=== PATIENT | male | born 1950 | race Caucasian/White ===

== ENCOUNTER 2017-06-05 14:54 | Emergency (ER) | payer MEDICARE, OTHER ==
[2017-06-05 15:07] VITALS: BP 151/74
--- NOTE | 2017-06-05 15:30 | UC ---
Bite Injury/Animal HPI - HPI Summary HPI Summary: 66 YEAR OLD MALE PRESENTS WITH A TICK BITE ON HIS BACK AND WANTS TO BE TESTED FOR LYME. - History of Current Complaint Chief Complaint: UCSkin Stated Complaint: TICK BITE Time Seen by Provider: 06/05/17 15:30 Hx Obtained From: Patient Severity Currently: Moderate Severity Initially: Moderate Pain Scale Used: 0-10 Numeric - 5 Onset/Duration: Sudden Onset Type of Bite: Animal - TICK - Allergies/Home Medications Allergies/Adverse Reactions: Allergies Allergy/AdvReac Type Severity Reaction Status Date / Time Penicillins Allergy A CHILD Verified 06/05/17 15:07 - UNSURE OF REACTION Home Medications: Home Medications Vitamin B Complex CAP* [B Complex CAP*] 1 cap PO DAILY 06/05/17 [History Confirmed 06/05/17] PMH/Surg Hx/FS Hx/Imm Hx Previously Healthy: Yes - Surgical History Surgical History: Yes Surgery Procedure, Year, and Place: CSP - C3-C6 LAMINECTOMY -01/10. [facility] AGE 4 AND THEN ABOUT 20 YRS AGO ALSO. DEVIATED SEPTUM - Social History Alcohol Use: Daily Alcohol Amount: 2 beers/day Substance Use Type: None Smoking Status (MU): Never Smoked Tobacco Review of Systems Constitutional: Negative Skin: Other - TICK BITE ON LEFT UPPER BACK Eyes: Negative ENT: Negative Respiratory: Negative Cardiovascular: Negative Gastrointestinal: Negative Genitourinary: Negative Motor: Negative Neurovascular: Negative Musculoskeletal: Negative Neurological: Negative Psychological: Negative All Other Systems Reviewed And Are Negative: Yes Physical Exam Triage Information Reviewed: Yes Vital Signs: Initial Vital Signs Temp 36.6 C 06/05/17 14:58 Pulse 67 06/05/17 14:58 Resp 16 06/05/17 14:58 BP 151/74 06/05/17 14:58 Pulse Ox 98 06/05/17 14:58 Vital Signs Reviewed: Yes Eye Exam: Normal ENT Exam: Normal Dental Exam: Normal Neck exam: Normal Neck: Positive: 1 Respiratory Exam: Normal Cardiovascular Exam: Normal Abdominal Exam: Normal Musculoskeletal Exam: Normal Neurological Exam: Normal Psychological Exam: Normal Skin: Positive: Other - TICK BITE LEFT UPPER BACK Bite Injury Course/Dx - Course Course Of Treatment: PATIENT OPTED FOR 200 MG DOXYCYCLINE DOSE UNTIL RESULTS COME BACK - Differential Dx/Diagnosis Provider Diagnoses: INSECT BITE LEFT UPPER BACK Discharge - Discharge Plan Condition: Stable Disposition: HOME Patient Education Materials: Lyme Disease (ED), Tick Bite (ED) Referrals: Trino Cruz MD [Primary Care Provider] -
[2017-06-05] MEDS ORDERED: DOXYcycline CAP(*) 100 MG PO ONE (15:37)
[2017-06-05 19:30] LABS: BUN/Creatinine Ratio 15.7 (8-20); Calcium 9.1 mg/dL (8.6-10.3); EGFR African American 81.6 (>60); EGFR Non-African American 63.4 (>60); Globulin 2.4 g/dL (2-4); Potassium 3.8 mmol/L (3.5-5.0); Total Bilirubin 0.6 mg/dL (0.2-1.0); Total Protein 6.4 g/dL (6.4-8.9)
--- NOTE | 2017-06-08 07:18 | UC ---
Progress - Progress Note Progress Note: lyme (+).doxycycline called in. f/u PCP.
[2017-06-09 14:02] LABS: Lyme Disease IgG Ab WB Negative (Negative)
== END 2017-06-05 16:00 | disposition home or self-care (01) ==
LOC: UCEAST 14:54
DX: S20.462A Insect bite (nonvenomous) of left back wall of thorax, initial encounter (principal); W57.XXXA Bitten or stung by nonvenomous insect and other nonvenomous arthropods, initial encounter; Y92.9 Unspecified place or not applicable
CPT/HCPCS: 36415; 80053; 86617; 86618; 99212; A9270-GY; G0463

== ENCOUNTER 2018-04-15 08:58 | Emergency (ER) | payer MEDICARE, OTHER ==
[2018-04-15 09:14] VITALS: BP 137/85
--- NOTE | 2018-04-15 09:52 | UC ---
Knee Pain HPI - HPI Summary HPI Summary: FELL ON HIS KNEE OVER THE WINTER AND SINCE THEN HAS HAD INTERMITTENT PAIN AND SWELLING. USUALLY RESOLVES WITH RICE AND IBUPROFEN BUT CURRENTLY IS NOT WORKING. PAIN HAS BEEN WORSENING OVER THE PAST 2 WEEKS. PATIENT IS NOW LIMPING. CALLED HIS PCP WHO WAS TO ORDER AN X-RAY FOR HIM. PATIENT IS STILL WAITING ON THIS ORDER SO DECIDED TO COME IN HERE TODAY. - History of Current Complaint Chief Complaint: UCLowerExtremity Stated Complaint: KNEE PAIN Time Seen by Provider: 04/15/18 09:24 Hx Obtained From: Patient Onset/Duration: Gradual Onset, Lasting Weeks, Still Present Severity Initially: Moderate Severity Currently: Moderate Pain Intensity: 3 Pain Scale Used: 0-10 Numeric Character: Aching Aggravating Factor(s): Movement, Weight Bearing Alleviating Factor(s): Nothing Associated Signs And Symptoms: Positive: Swelling Able to Bear Weight: Yes - WITH PAIN - Allergies/Home Medications Allergies/Adverse Reactions: Allergies Allergy/AdvReac Type Severity Reaction Status Date / Time Penicillins Allergy See Comment Verified 04/15/18 09:14 Home Medications: Home Medications Inulin/Chromium Picolinate [Fiber Gummies] 1 each PO TID 04/15/18 [History Confirmed 04/15/18] PMH/Surg Hx/FS Hx/Imm Hx - Additional Past Medical History Additional PMH: ALLERGIES Endocrine History: Hypothyroidism, Dyslipidemia GI/ History: Gastroesophageal Reflux - Surgical History Surgical History: Yes Surgery Procedure, Year, and Place: CSP - C3-C6 LAMINECTOMY -01/10. [facility]IA AGE 4 AND THEN ABOUT 20 YRS AGO ALSO. DEVIATED SEPTUM - Family History Known Family History: Positive: Hypertension Negative: Blood Disorder - Social History Alcohol Use: Daily Alcohol Amount: 2 beers/day Substance Use Type: None Smoking Status (MU): Never Smoked Tobacco Review of Systems Constitutional: Negative Skin: Negative Respiratory: Negative Cardiovascular: Negative Gastrointestinal: Negative Musculoskeletal: Arthralgia, Decreased ROM, Edema All Other Systems Reviewed And Are Negative: Yes Physical Exam Triage Information Reviewed: Yes Appearance: Well-Appearing, No Pain Distress, Well-Nourished Vital Signs: Initial Vital Signs Temp 98.1 F 04/15/18 09:09 Pulse 83 04/15/18 09:09 Resp 18 04/15/18 09:09 BP 137/85 04/15/18 09:09 Pulse Ox 100 04/15/18 09:09 Vital Signs Reviewed: Yes Eyes: Positive: Conjunctiva Clear ENT: Positive: Hearing grossly normal Neck: Positive: Supple Respiratory: Positive: No respiratory distress, No accessory muscle use Cardiovascular: Positive: Pulses Normal Abdomen Description: Positive: Soft Musculoskeletal: Positive: ROM Limited @ - LEFT KNEE, Edema @ - LEFT KNEE, Other : - LEFT KNEE: DIFFUSELY TENDER AND SWOLLEN. NO BONY POINT TENDERNESS. MCL AND LCL INTACT TO STRESS TESTING. NEG LACHMANS. NEG DRAWERS SIGNS. EQUIVOCAL MCMURRAYS. NEG PATELLAR APPREHENSION TEST. DECREASED ROM (FLEXION). Neurological: Positive: Alert Psychological: Positive: Age Appropriate Behavior Skin: Negative: rashes Diagnostics - Radiology LEFT KNEE XRAY Xray Interpretation: Positive (See Comments) - 1. MILD OSTEOARTHRITIS. 2. MILD CHONDROCALCINOSIS. 3. SMALL JOINT EFFUSION. Radiology Interpretation Completed By: Radiologist Knee Pain Course/Dx - Differential Dx/Diagnosis Provider Diagnoses: LEFT KNEE INJURY Discharge - Sign-Out/Discharge Documenting (check all that apply): Patient Departure - Discharge Plan Condition: Stable Disposition: HOME Patient Education Materials: Osteoarthritis (ED), Knee Pain (ED) Referrals: Trino Cruz MD [Primary Care Provider] - If Needed Pilar Soler MD [Medical Doctor] - 1 Week Additional Instructions: XRAY TODAY SHOWS: 1. MILD OSTEOARTHRITIS. 2. MILD CHONDROCALCINOSIS. 3. SMALL JOINT EFFUSION. FOLLOW-UP WITH ORTHO WITHIN A WEEK FOR FURTHER EVALUATION. KNEE IMMOBILIZER FOR STABILITY AND SUPPORT. BE SURE TO GO THROUGH SLOW RANGE OF MOTION MOVEMENTS DAILY YOU ARE ABLE TO PREVENT STIFFENING UP AND MAKING THE DISCOMFORT WORSE. IBUPROFEN MAX DOSE: 600MG (3 TABS) EVERY 6 HRS OR 800MG (4 TABS) EVERY 8 HRS OR NAPROXEN MAX DOSE: 440MG (2 TABS) EVERY 12 HRS TYLENOL MAX DOSE: 1000MG (2 EXTRA STRENGTH TABS) EVERY 8 HRS OR 650MG (2 REGULAR TABS) EVERY 6 HRS - Billing Disposition and Condition Condition: STABLE Disposition: Home
--- NOTE | 2018-04-15 10:18 | RAD ---
HISTORY: INCREASED PAIN AND SWELLING SINCE FALL LAST WINTER COMPARISONS: None VIEWS: 4, Frontal, lateral, axial, and oblique views of the left knee FINDINGS: BONE DENSITY: Normal. BONES: There is no displaced fracture. JOINTS: There is mild tricompartmental osteoarthritis. There is chondrocalcinosis along the medial compartment.. There is a small suprapatellar joint effusion without lipohemarthrosis ALIGNMENT: There is no dislocation. SOFT TISSUES: Unremarkable. OTHER FINDINGS: None. IMPRESSION: 1. MILD OSTEOARTHRITIS. 2. MILD CHONDROCALCINOSIS. 3. SMALL JOINT EFFUSION. 4. NO ACUTE OSSEOUS INJURY. IF SYMPTOMS PERSIST, RECOMMEND REPEAT IMAGING
== END 2018-04-15 10:59 | disposition home or self-care (01) ==
LOC: UCEAST 08:58
DX: S89.92XA Unspecified injury of left lower leg, initial encounter (principal); X58.XXXA Exposure to other specified factors, initial encounter; Y93.9 Activity, unspecified; Y92.9 Unspecified place or not applicable; M17.12 Unilateral primary osteoarthritis, left knee; M11.262 Other chondrocalcinosis, left knee; Z88.0 Allergy status to penicillin
CPT/HCPCS: 99213; G0463

== ENCOUNTER 2018-05-28 15:00 | Inpatient (IN) | payer MEDICARE, OTHER ==
--- NOTE | 2019-03-29 18:30 | HP ---
PREOPERATIVE HISTORY AND PHYSICAL: DATE OF ADMISSION/SURGERY: 04/08/19 DATE OF OFFICE VISIT: 03/29/19 ATTENDING PHYSICIAN: Dr. Berta Friend.* (DICTATED BY BRITTANY THOMASON) PROCEDURE: Scheduled right total hip arthroplasty. CHIEF COMPLAINT: Right hip pain. HISTORY OF PRESENT ILLNESS: Mr. Johnston is a 68-year-old male with ongoing right hip pain. He did initially get relief with steroid injection. He has increased pain with activities and exercise, decreased with rest and steroid injections. He has regressed overall and now has elected to proceed with right total hip arthroplasty, which is scheduled on 04/08/19. PAST MEDICAL HISTORY: Significant for cervical disk degeneration, osteoarthritis, cervical spondylosis, idiopathic peripheral autonomic neuropathy , spinal stenosis, hypothyroidism, GERD, remote history of Lyme disease. PAST SURGICAL HISTORY: Cervical laminectomy, hernia repair, deviated septum surgery, throat abscess excision. CURRENT MEDICATIONS: 1. Levothyroxine 75 mcg daily. 2. Ranitidine 300 mg 1 daily. 3. Atorvastatin 10 mg p.o. daily. 4. Gabapentin 100 mg 3 tablets at bedtime. 5. Sudafed 120 mg as needed for seasonal allergies. 6. Acetaminophen 500 mg as needed for joint pain. 7. Supplements, fish oil 300 mg daily. 8. Vitamin B complex daily. 9. Vitamin D3 1000 International Units daily. 10. Glucosamine and chondroitin sulfate 1 to 2 tablets daily. 11. Psyllium fiber capsules daily. 12. AREDS eye multivitamins daily. ALLERGIES: PENICILLIN. FAMILY HISTORY: Father with prostate cancer. Mother with a history of colon cancer. SOCIAL HISTORY: The patient drinks roughly 1 glass of wine with dinner daily. Denies use of tobacco products or illicit drugs. He lives alone. 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 REVIEW OF SYSTEMS: Positive for right hip pain and left knee pain. Denies recent fever, chills, chest pain, shortness of breath. Denies gastrointestinal or genitourinary symptoms. He does have paresthesias in the fingertips and in his feet bilaterally. There is intermittent patchy paresthesias from the knee to the ankle. PHYSICAL EXAMINATION GENERAL: He is alert and oriented x3, in no acute distress, appropriate affect and mood. VITAL SIGNS: Height 71 inches, weight 192. Pulse 56, BP 172/110. HEENT: PERRLA. EOMI. NECK: Supple. LUNGS: Clear to auscultation, without wheeze. HEART: Regular rate and rhythm, without murmur. ABDOMEN: Nontender, nondistended. Normoactive bowel sounds x4 quadrants. EXTREMITIES: Right lower extremity: Flexion to 90 degrees with mild pain. Internal and external rotation limited secondary to right groin pain. He has a 2+ pedal pulse. Mild paresthesias in the toes on the right. Calf is soft and nontender. IMPRESSION: Advanced osteoarthritis of the right hip. PLAN: The patient has elected to proceed with right total hip arthroplasty, which is scheduled with Dr. Friend on 04/08/19 at [facility] [place]. The patient's risks and benefits were fully reviewed today by Dr. Friend at his preoperative office visit and he elected to proceed with surgery. BRITTANY THOMASON [id number]/[facility] #: [id number] ALLIE
[2019-04-08] MEDS ORDERED: Tranexamic Acid 1,000 MG in NS 0.9% 50 ML* (outpatient use) IV SCH ×2
[2019-04-08] MEDS ORDERED: Famotidine IV* 10 MG/ML 2 ML (20 mg) IV ONE (06:00)
[2019-04-08] MEDS ORDERED: Lactated Ringers 1000 ML Bag* 1,000 ML IV SCH (06:00)
[2019-04-08] MEDS ORDERED: Gabapentin CAP(*) 300 MG PO ONE (06:00)
--- OUTSIDE RECORDS SUMMARY | 2019-04-08 13:34 | XMS REPORT | Continuity of Care Document ---
:1950 External Reference #:[id number] Author Name Albertina Coleecca Care Team Providers Name Role Phone Trino Cruz MD Primary Care Physician Unavailable Payers Date Identification Numbers Payment Provider Subscriber Policy Number: [id number] Medicare Silvestre Chapman PayID: [id number] [address] [place] [address] Expires: 2018 Policy Number: [id number] Medicare Silvestre Chapman PayID: [id number] [address] [place] [address] Effective: 2011 Policy Number: [id number] BS Facets Silvestre Chapman Expires: 2016 PayID: [id number] [address] [address] [place] [address] Expires: 2017 Group Number: [id number] [employer] Silvestre Chapman Group Name: [facility] [place] [address],[address] PayID: [id number] [place] [address] Effective: 2017 Policy Number: [id number] [employer] Silvestre Chapman PayID: [id number] [address] [place] [address] Problems Active Problems Provider Date Spinal stenosis in cervical region Makr Hcikman M.D. Onset: 09/17/2013 Postsurgical Status Other Mark Hickman M.D. Onset: 09/17/2013 Idiopathic peripheral autonomic neuropathy aDniel Rae M.D. Onset: 2015 Cervical spondylosis with myelopathy Daniel Rae M.D. Onset: 09/13/2016 Localized, primary osteoarthritis Berta Friend M.D. Onset: 04/17/2018 Intervertebral disc disorder of cervical Akash Diaz M.D. Onset: 2017 region with myelopathy Low back pain Akash Diaz M.D. Onset: 05/28/2018 Polyneuropathy Akash Diaz M.D. Onset: 05/28/2018 Skin sensation disturbance Akash Diaz M.D. Onset: 08/18/2018 Localized, primary osteoarthritis of the Berta Friend M.D. 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 need thigh high Levothyroxine Sodium 1 by mouth once Unknown 75mcg daily Tablets Atorvastatin Calcium One by mouth Unknown 10mg once daily Tablets Gabapentin 1 by mouth as Trino Cruz, 100mg Capsules needed Ranitidine HCL 1 by mouth once Trino Cruz, 300mg Tablets daily Fiber Choice Unknown 1.5gm Chewtabs Pseudoephedrine HCL ER As needed Unknown 120mg Tablets ER 12HR Glucosamine Chondroitin Once daily Unknown Capsules History Medications Vitamin B Complex-C once daily Unknown - Capsules 02/04/2019 Fish Oil As directed Unknown - Capsules 02/04/2019 Areds 2 Once daily Unknown - Areds 2 Capsules 02/04/2019 Acetaminophen Extra 2 tabs by mouth Unknown - Strength every 8 hours as 02/04/2019 500mg Tablets needed for pain or fever Loratadine 1 by mouth every day 30tabs Unknown - 10mg Tablets 02/04/2019 Multivitamin Adult 1 by mouth every day Unknown - Tablets 05/27/2018 Vitamin D2 1 by mouth every day Unknown - 2000Unit Tablets 02/04/2019 Naproxen Sodium As needed Unknown - 220mg Capsules 02/04/2019 Pantoprazole Sodium Unknown - 40mg 05/26/2018 Tablets Synthroid 1 po qd Unknown - Tablets 08/19/2016 Pantoprazole Sodium 1 po qd 30units Unknown - Solution 08/19/2016 Rec Medications Administered in Office Medication SIG Qnty Indications Ordering Provider Date No Injection Berta Friend M.D. 02/05/2019 Injection Depomedrol 40MG Berta Friend M.D. 02/05/2019 Injection Triamcinolone (Kenalog) Berta Friend M.D. 04/17/2018 Injection Vital Signs Date Vital Result Comment 03/29/2019 8:58am Height 71 inches 5'11" Weight 192.00 lb Heart Rate 56 /min BP Systolic 172 mmHg BP Diastolic 110 mmHg Respiratory Rate 16 /min Body Temperature 96.8 F Pain Level 2 BMI (Body Mass Index) 26.8 kg/m2 02/17/2019 8:20am Height 71 inches 5'11" Weight 190.00 lb Heart Rate 66 /min Body Temperature 96.9 F O2 % BldC Oximetry 98 % BMI (Body Mass Index) 26.5 kg/m2 02/05/2019 9:49am Height 71 inches 5'11" Weight 189.00 lb Heart Rate 72 /min BP Systolic 144 mmHg BP Diastolic 90 mmHg Respiratory Rate 18 /min Body Temperature 97.2 F Pain Level 6 BMI (Body Mass Index) 26.4 kg/m2 08/18/2018 8:16am Height 71 inches 5'11" Weight 189.00 lb Heart Rate 76 /min BP Systolic 138 mmHg BP Diastolic 98 mmHg BMI (Body Mass Index) 26.4 kg/m2 05/28/2018 11:17am Height 71 inches 5'11" Weight 191.50 lb Heart Rate 76 /min BP Systolic 136 mmHg BP Diastolic 100 mmHg Respiratory Rate 16 /min BMI (Body Mass Index) 26.7 kg/m2 04/24/2018 10:08am Height 71 inches 5'11" Heart Rate 64 /min BP Systolic Sitting 126 mmHg BP Diastolic Sitting 78 mmHg Body Temperature 97.8 F Pain Level 2 04/17/2018 3:39pm Height 71 inches 5'11" Weight 200.00 lb Heart Rate 76 /min BP Systolic Sitting 126 mmHg BP Diastolic Sitting 72 mmHg Body Temperature 97.8 F Pain Level 0 BMI (Body Mass Index) 27.9 kg/m2 09/13/2016 10:25am Height 71 inches 5'11" Weight 201.00 lb Heart Rate 70 /min BP Systolic Sitting 130 mmHg BP Diastolic Sitting 80 mmHg Pain Level 2 BMI (Body Mass Index) 28.0 kg/m2 08/19/2016 9:28am Height 71 inches 5'11" Weight 201.00 lb Heart Rate 76 /min BP Systolic Sitting 132 mmHg BP Diastolic Sitting 80 mmHg Pain Level 0 BMI (Body Mass Index) 28.0 kg/m2 09/17/2013 1:49pm Height 71 inches 5'11" Weight 203.00 lb BP Systolic 140 mmHg BP Diastolic 84 mmHg Pain Level 0 BMI (Body Mass Index) 28.3 kg/m2 Results Test Date Facility Test Result H/L Range Note Urinalysis Profile 03/29/2019 [facility] Urine Color Straw [address] [place] [address] [phone] Urine Appearance Clear Urine Specific [place] 1.006 Low 1.010-1.030 Urine pH 7.0 Normal 5-9 Urine Urobilinogen Negative Negative Urine Ketones Negative Negative Urine Protein Negative Negative Urine Leukocytes Negative Negative Urine Blood Negative Negative Urine Nitrite Negative Negative Urine Bilirubin Negative Negative Urine Glucose Negative Negative CBC Auto 03/29/2019 [facility] White Blood 6.9 10^3/uL Normal 3.5-10.[address] [place] [address] [phone] Red Blood Count 4.66 10^6/uL Normal 4.18-5.48 Hemoglobin 15.4 g/dL Normal 14.0-18.0 Hematocrit 44 % Normal 42-52 Mean Corpuscular Volume 95 fL High 80-94 Mean Corpuscular Hemoglobin 33 pg High 27-31 Mean Corpuscular HGB Conc 35 g/dL Normal 31-36 Red Cell Distribution Width 15 % Normal 10-15 Platelet Count 178 10^3/uL Normal 150-450 Mean Platelet Volume 9.0 fL Normal 7.4-10.4 Abs Neutrophils 5.0 10^3/uL Normal 1.5-7.7 Abs Lymphocytes 1.1 10^3/uL Normal 1.0-4.8 Abs Monocytes 0.5 10^3/uL Normal 0-0.8 Abs Eosinophils 0.2 10^3/uL Normal 0-0.6 Abs Basophils 0.0 10^3/uL Normal 0-0.2 Abs Nucleated RBC 0.0 10^3/uL Granulocyte % 72.6 % Lymphocyte % 16.7 % Monocyte % 7.1 % Eosinophil % 3.0 % Basophil % 0.6 % Nucleated Red Blood Cells % 0.0 Inr/Protime 03/29/2019 [facility] Inr 0.97 Normal 0.82-1.[address] [place] [address] [phone] Laboratory test 03/29/2019 [facility] Partial 36.3 Normal 26.0 -38.[address] [address] Time PTT [phone] Comp Metabolic 03/29/2019 [facility] Sodium 140 mmol/L Normal 135-[address] [place] [address] [phone] Potassium 4.7 mmol/L Normal 3.5-5.0 Chloride 107 mmol/L Normal 101-111 Co2 Carbon Dioxide 28 mmol/L Normal 22-32 Anion Gap 5 mmol/L Normal 2-11 Glucose 90 mg/dL Normal 70-100 Blood Urea Nitrogen 15 mg/dL Normal 6-24 Creatinine 1.01 mg/dL Normal 0.67-1.17 BUN/Creatinine Ratio 14.9 Normal 8-20 Calcium 9.7 mg/dL Normal 8.6-10.3 Total Protein 7.0 g/dL Normal 6.4-8.9 Albumin 4.5 g/dL Normal 3.2-5.2 Globulin 2.5 g/dL Normal 2-4 Albumin/Globulin Ratio 1.8 Normal 1-3 Total Bilirubin 0.90 mg/dL Normal 0.2-1.0 Alkaline Phosphatase 67 U/L Normal 34-104 Alt 12 U/L Normal 7-52 Ast 26 U/L Normal 13-39 Egfr Non- 73.2 >60 Egfr 88.6 >60 2 Type & Screen 03/29/2019 [facility] Patient Blood Type A Positive [address] [place] [address] [phone] Antibody Screen NEGATIVE Urine Culture And 03/29/2019 [facility] Urine SEE RESULT [address] Culture BELOW [place] [address] [phone] Xray 02/05/2019 [facility] Inj/Aspir <pending> Major JT Or Bursa W/ US Lyme Western Blot 06/05/2018 [facility] Lyme Disease Negative Negative [address] [place] [address] [phone] Lyme Disease IgG Bands Present p45,p41,p39 kDa Lyme Disease IgM Ab WB Negative Negative Lyme Disease IgM Bands Present No bands detecte <SEE NOTE> kDa 4 Lyme Disease Interpretation See Comment 5 Basic Metabolic 06/05/2018 [facility] Sodium 136 mmol/L Normal 135-[address] [place] [address] [phone] Potassium 4.2 mmol/L Normal 3.5-5.0 Chloride 106 mmol/L Normal 101-111 Co2 Carbon Dioxide 25 mmol/L Normal 22-32 Anion Gap 5 mmol/L Normal 2-11 Glucose 94 mg/dL Normal 70-100 Blood Urea Nitrogen 15 mg/dL Normal 6-24 Creatinine 1.12 mg/dL Normal 0.67-1.17 BUN/Creatinine Ratio 13.4 Normal 8-20 Calcium 9.2 mg/dL Normal 8.6-10.3 Egfr Non- 65.2 >60 Egfr 78.9 >60 6 Laboratory test 06/05/2018 [facility] Lyme Disease Positive Negative [address] Serology [place] [address] [phone] Laboratory test 04/24/2018 [facility] Lyme Disease Positive Negative [address] [place] [address] [phone] Lyme Western Blot 04/24/2018 [facility] Lyme Disease Negative Negative [address] [place] [address] [phone] Lyme Disease IgG Bands Present p66,p45,p41,p39 kDa Lyme Disease IgM Ab WB Negative Negative Lyme Disease IgM Bands Present No bands detecte <SEE NOTE> kDa 9 Lyme Disease Interpretation See Comment 10 Surgical 01/14/2012 [facility] Surgical [address] Pathology <SEE NOTE> [place] [address] [phone] Basic 01/06/2012 [facility] Sodium 137 mmol/L 135- [address] [place] [address] [phone] Potassium 4.5 mmol/L 3.5-5.0 Chloride 105 mmol/L 101-111 Co2 (Carbon Dioxide) 28.0 mmol/L 22-32 Anion Gap 4.0 mmol/L 2-11 13 Glucose 86 mg/dL 70-100 BUN 11 mg/dL 6-24 Creatinine 1.5 mg/dL High 0.50-1.40 One Over Creatinine 0.66 BUN/Creatinine Ratio 7.3 Low 8-20 Calcium 9.3 mg/dL 8.1-9.9 eGFR Non- 47.4 > 60 eGFR 61.0 > 60 14 Type And Screen 01/06/2012 [facility] Patient Blood A POSITIVE (Pre-Adm) [address] [place] [address] [phone] Antibody Screen NEGATIVE Specimen Discard Date 01/20/12 15 Laboratory test 01/06/2012 [facility] PTT (Aptt) 28.9 SEC 25.1-38[place] [place] [address] [phone] Protime 01/06/2012 [facility] Inr 0.89 0.88-1.[address] [place] [address] [phone] Protime 10.5 SEC 10.3-13.5 17 CBC Auto Diff 01/06/2012 [facility] White Blood 5.1 CUMM 4.8- 10.[address] [place] [address] [phone] Red Cell Count 4.05 CUMM Low 4.6-6.2 Hemoglobin 13.7 g/dL Low 14.0-18.0 Hematocrit 39 % Low 42-52 Mean Corpuscular Volume 97 um3 High 80-94 Mean Corpuscular Hemoglob 34 pg High 27-31 Mean Corpuscular HGB Cone 35 g/dL 32-36 Redcell Distribution WDTH 14 % 10.5-15 Platelet Count 207 CUMM 150-450 Mean Platelet Volume 9.5 um3 7.4-10.4 Gran % 51.8 % 38-83 Lymph % 25.9 % 25-47 Mononuclear % 7.7 % 1-9 Eosinophil % 13.9 % High 0-6 Basophil % 0.7 % 0-2 Abs Lymphs 1.3 1.0-4.8 Abs Mononuclear 0.4 0-0.8 Absolute Neutrophil Count 2.6 1.5-7.7 Abs Eosinophils 0.7 High 0-0.6 Abs Basophils 0 0-0.2 1 Standard intensity warfarin therapeutic range: 2.0-3.0 High intensity warfarin therapeutic range: 2.5-3.5 2 Because ethnic data is not always readily available, this report includes an eGFR for both -Americans and non- Americans. The National Kidney Disease Education Program (NKDEP) does not endorse the use of the MDRD equation for patients that are not between the ages of 18 and 70, are , have extremes of body size, muscle mass, or nutritional status, or are non- or non-. According to the National Kidney Foundation, irrespective of diagnosis, the stage of the disease is based on the level of kidney function: Stage Description GFR(mL/min/1.73 m(2)) 1 Kidney damage with normal or decreased GFR 90 2 Kidney damage with mild decrease in GFR 60-89 3 Moderate decrease in GFR 30-59 4 Severe decrease in GFR 15-29 5 Kidney failure <15 (or dialysis) 3 SEE RESULT BELOW Name: SILVESTRE CHAPMAN : [address]: Berta Friend MD Acct: [id number] Unit: [id number] AGE: 68 Location: [facility] Re03/29/19 SEX: M Status: REG REF SPEC: [id number] JETT: 03/29/[address]: Berta Friend MD REQ: [id number] RECD: 03/29/19 STATUS: CINTIA JUÁREZ DR: Trino Cruz MD _ SOURCE: URINE SPDESC: ORDERED: Urine Culture QUERIES: Urine Source: Random Procedure Result Reported Site Urine Culture Final 03/30/191240 ML No Growth (<1,000 CFU/mL) * ML - Main Lab . END OF REPORT DEPARTMENT OF PATHOLOGY, [address] [place] [id number] Sekou Cote M.D. Director [facility] # [id number] 4 No bands detected 5 Specific serologic response to B. burgdorferi infection is not detected, but cannot rule out early infection during which low or undetectable antibody levels to B. burgdorferi may be present. If clinically indicated, a new serum specimen should be submitted in 7-14 days. ADDITIONAL INFORMATION Per CDC criteria, the Lyme IgG Immunoblot is interpreted as positive if IgG-class antibodies are detected to >=5 B. burgdorferi proteins, and the Lyme IgM Immunoblot is interpreted as positive if IgM-class antibodies are detected to >=2 B. burgdorferi proteins. Immunoblot patterns not meeting these criteria should not be interpreted as positive. Epitopes from certain B. burgdorferi proteins (e.g., p41) are conserved across other bacteria, which may lead to the detection of IgM- and/or IgG-class antibodies on the Lyme disease immunoblots in patients without Lyme disease. Immunoblot should only be ordered on specimens that are positive or equivocal by a FDA-licensed Lyme disease antibody screening test (e.g., EIA). Results of the Lyme IgM immunoblot should not be considered in patients with >=30 days of symptoms. Test Performed by: [facility] [address] [place] [address] 6 Because ethnic data is not always readily available, this report includes an eGFR for both -Americans and non- Americans. The National Kidney Disease Education Program (NKDEP) does not endorse the use of the MDRD equation for patients that are not between the ages of 18 and 70, are , have extremes of body size, muscle mass, or nutritional status, or are non- or non-. According to the National Kidney Foundation, irrespective of diagnosis, the stage of the disease is based on the level of kidney function: Stage Description GFR(mL/min/1.73 m(2)) 1 Kidney damage with normal or decreased GFR 90 2 Kidney damage with mild decrease in GFR 60-89 3 Moderate decrease in GFR 30-59 4 Severe decrease in GFR 15-29 5 Kidney failure <15 (or dialysis) 7 Not diagnostic. Supplemental testing by immunoblot has been ordered by reflex. Test Performed by: [facility] - [address] [address] 8 Not diagnostic. Supplemental testing by immunoblot has been ordered by reflex. Test Performed by: [facility] - [address] [address] 9 No bands detected 10 Specific serologic response to B. burgdorferi infection is not detected, but cannot rule out early infection during which low or undetectable antibody levels to B. burgdorferi may be present. If clinically indicated, a new serum specimen should be submitted in 7-14 days. ADDITIONAL INFORMATION Per CDC criteria, the Lyme IgG Immunoblot is interpreted as positive if IgG-class antibodies are detected to >=5 B. burgdorferi proteins, and the Lyme IgM Immunoblot is interpreted as positive if IgM-class antibodies are detected to >=2 B. burgdorferi proteins. Immunoblot patterns not meeting these criteria should not be interpreted as positive. Epitopes from certain B. burgdorferi proteins (e.g., p41) are conserved across other bacteria, which may lead to the detection of IgM- and/or IgG-class antibodies on the Lyme disease immunoblots in patients without Lyme disease. Immunoblot should only be ordered on specimens that are positive or equivocal by a FDA-licensed Lyme disease antibody screening test (e.g., EIA). Results of the Lyme IgM immunoblot should not be considered in patients with >=30 days of symptoms. Test Performed by: [facility] - [address] [address] ---- RUN DATE: 02/14/12 [facility] NMI LIVE PAGE 1 RUN TIME: 1615 Specimen Inquiry RUN USER: INTERFACE -- Name: SILVESTRE CHAPMAN Status: [facility] Re01/14/12 Age/Sex: 61/M Unit#: [id number] Location: LOCATED WITHIN [facility] : [birth year] -- Specimen: [id number] [facility] Spec Date:01/14/12- [facility] Dr: Mark corado MD Spec Type: SURGICAL P Received:01/15/12 Copies to: SPECIMEN C3-C4 LAMINA SPINAL PROCESSES AND LIGAMENTS HISTORY PRE-OP DIAGNOSIS: Severe cord compression C3-C6 GROSS DESCRIPTION The specimen is received in formalin labelled Silvestre Chapman, C3-6 Lamina Spinal Process, and consists of four spinous processes connected by ligaments tissue measuring 7.0 cm. by up to 2.0 cm. by up to 2.0 cm. Back Panel Padder section, one cassette after decal. DIAGNOSIS Cervical spine, C3-C4, lamina: A. Bone with reactive changes. B. Normocellular bone marrow for age (40%) with mixed trilineal hematopoiesis and focal interstitial small lymphoid aggregates. Signed Electronically by: SHILPI CARTAGENA 02/14/12 6595 -- -- DEPARTMENT OF PATHOLOGY, [address] [place] [address] [facility] Permit #[id number] Sekou Cote M.D. Director Shilpi Cartagena M.D. Public Health Director Dir marissa -- 12 SDS 01/09/12 13 Anion gap measurement may be of limited value in the presence of any alkalosis, especially in a combined acid base disorder. . 14 Because ethnic data is not always readily available, this report includes an eGFR for both -Americans and non- Americans. The National Kidney Disease Education Program (NKDEP) does not endorse the use of the MDRD equation for patients that are not between the ages of 18 and 70, are , have extremes of body size, muscle mass, or nutritional status, or are non- or non-. According to the National Kidney Foundation, irrespective of diagnosis, the stage of the disease is based on the level of kidney function: Stage Description GFR(mL/min/1.73 m(2)) 1 Kidney damage with normal or decreased GFR 90 2 Kidney damage with mild decrease in GFR 60-89 3 Moderate decrease in GFR 30-59 4 Severe decrease in GFR 15-29 5 Kidney failure <15 (or dialysis) 15 PREADMISSION TESTING SAMPLES FOR BLOOD BANK WILL BE HELD FOR 14 DAYS FROM THE DATE OF COLLECTION *IF* THE FOLLOWING CRITERIA ARE MET: 1) THE PATIENT HAS *NOT* BEEN IN THE LAST 3 MONTHS. 2) THE PATIENT HAS *NOT* BEEN TRANSFUSED IN THE LAST 3 MONTHS. PREADMISSION TESTING SAMPLES WILL *NOT* BE HELD FOR 14 DAYS FROM PATIENTS WHO IN THE LAST 3 MONTHS: 1) HAVE BEEN 2) HAVE BEEN TRANSFUSED THESE PATIENTS *MUST* BE COLLECTED WITHIN 3 DAYS OF THE SURGERY DATE. 16 Recommended INR for Patients on Oral Anticoagulants Prophylaxis 2.0 - 3.0 Treatment of thrombosis 2.0 - 3.0 Prevention of embolism 2.0 - 3.0 Prevention of embolism from prosthetic heart valves 2.5 - 3.5 17 DIAGNOSIS,TREATMENT,AND THERAPY MUST BE BASED ON THE INR VALUE ALONE. Procedures Date Code Description Status 02/05/201982837 Inj/Aspir Major JT Or Bursa W/ US Completed 04/17/201895278 Inject/Drain Joint/Bursa Major W/O US Completed 05/27/2017 64338 Moderate Sedation Services; Same Phys Intl 15 Mins; PT Completed >=5 Years 05/27/2017 43880 Colonoscopy Flexible Remove Tumor/Polyp/Lesion Snare Completed Technique 05/27/2017 62018975 Colonoscopy Completed 01/14/2012 53714 Laminectomy W/Expl &/Or Decomp Of Spinal Cord &/Or Completed Cauda Equina Encounters Type Date Location Provider Dx Diagnosis Office Visit 02/17/2019 Orthopedic Berta Friend, M25.551 Pain in right hip 8:15a Services Of [facility] M25.562 Pain in left knee M16.11 Unilateral primary osteoarthritis, right hip M17.12 Unilateral primary osteoarthritis, left knee M25.462 Effusion, left knee Office Visit 02/05/2019 9:30a Orthopedic Services Berta Friend, M25.551 Pain in right Of [facility] hip M16.11 Unilateral primary osteoarthritis, right hip Office Visit 08/18/2018 [place] G62.9 Polyneuropathy, 8:15a Neurologic Miranda Diaz unspecified [facility] R20.2 Paresthesia of skin G95.89 Other specified diseases of spinal cord Office Visit 05/28/2018 Stalin Diaz, M50.01 Cervical disc 11:15a Neurologic M.D. disorder w [facility] myelopathy, high cervical region M54.5 Low back pain G62.9 Polyneuropathy, unspecified R20.2 Paresthesia of skin Office Visit 04/24/2018 9:45a Orthopedic Services Berta Friend, M25.562 Pain in left Of [facility] knee M25.462 Effusion, left knee M17.12 Unilateral primary osteoarthritis, left knee Office Visit 04/17/2018 3:15p Orthopedic Berta Friend, R60.0 Localized edema [facility] M25.562 Pain in left knee M25.462 Effusion, left knee M17.12 Unilateral primary osteoarthritis, left knee M21.062 Valgus deformity, not elsewhere classified, left knee Office Visit 09/13/2016 Neurosurgery Daniel Rae, M47.12 Other spondylosis 10:30a Services Of [facility] with myelopathy, cervical region Office Visit 08/19/2016 Neurosurgery Katharina Mai, R20.0 Anesthesia of 9:30a Services Of [facility] SNELL skin Office Visit 09/17/2013 Neurosurgery Mark De La O 723.0 Stenosis Spinal 1:40p [facility] Hickman M.D. Cervical Region V45.89 Postsurgical Status Other Office Visit 12/31/2011 Neurosurgery Mark De La O 722.71 Intervertebral Disc 2:00p Services [facility] Hickman M.D. Cervical W/ Myelopathy Office Visit 12/27/2011 Neurosurgery Mark De La O 722.0 Intervertebral Disc 1:00p Services [facility] Hickman M.D. Displacement Cervical W/O Myelopathy Plan of Treatment Future Appointment(s):04/21/2019 9:45 am - Berta Friend M.D. at [facility]04/08/2019 10:30 am - Maged Rascon PA-C at [facility]04/08/2019 10:30 am - SHARONDA Andino at [facility]04/08/2019 10:30 am - Berta Friend M.D. at [facility]08/19/2019 8:30 am - Akash Diaz M.D. at [facility]03/29/2019 - Berat Friend M.D.M25.551 Pain in right hipFollow up:Follow up: 10- 14 days post opM16.11 Unilateral primary osteoarthritis, right hip
--- OUTSIDE RECORDS SUMMARY | 2019-04-08 13:35 | XMS REPORT | Continuity of Care Document ---
:1950 External Reference #:[id number] Author Name Betty Pagan Care Team Providers Name Role Phone Trino Cruz MD Primary Care Physician Unavailable Payers Date Identification Numbers Payment Provider Subscriber Policy Number: [id number] Medicare Silvestre Preston PayID: [id number] [address] [place] [address] Expires: 2018 Policy Number: [id number] Medicare Silvestre Chapman PayID: [id number] [address] [place] [address] Effective: 2011 Policy Number: [id number] [employer]ets Silvestre Chapman Expires: 2016 PayID: [id number] [address] [address] [place] [address] Expires: 2017 Group Number: [id number] [employer] Silvestre Chapman Group Name: [facility] [address] [address],[address] PayID: [id number] [place] [address] Effective: 2017 Policy Number: [id number] [employer] Silvestre Chapman PayID: [id number] [address] [place] [address] Problems Active Problems Provider Date Spinal stenosis in cervical region Mark Hickman M.D. Onset: 09/17/2013 Postsurgical Status Other Mark Hickman M.D. Onset: 09/17/2013 Idiopathic peripheral autonomic neuropathy Daniel Rae M.D. Onset: 2015 Cervical spondylosis with [...] Date Facility Test Result H/L Range Note Xray 02/05/2019 [facility] House Inj/Aspir <pending> Major JT Or Bursa W/ US Laboratory test 06/05/2018 [facility] Lyme Disease Positive Negative [address] [place] [address] [phone] Basic Metabolic 06/05/2018 [facility] Sodium 136 mmol/L N 135- [address] [place] [address] [phone] Potassium 4.2 mmol/L N 3.5-5.0 Chloride 106 mmol/L N 101-111 Co2 Carbon Dioxide 25 mmol/L N 22-32 Anion Gap 5 mmol/L N 2-11 Glucose 94 mg/dL N 70-100 Blood Urea Nitrogen 15 mg/dL N 6-24 Creatinine 1.12 mg/dL N 0.67-1.17 BUN/Creatinine Ratio 13.4 N 8-20 Calcium 9.2 mg/dL N 8.6-10.3 Egfr Non- 65.2 >60 Egfr 78.9 >60 2 Lyme Western 06/05/2018 [facility] Lyme Disease Negative Negative Blot [address] [place] [address] [phone] Lyme Disease IgG Bands Present p45,p41,p39 kDa Lyme Disease IgM Ab WB Negative Negative Lyme Disease IgM Bands Present No bands detecte <SEE NOTE> kDa 3 Lyme Disease Interpretation See Comment 4 Laboratory test 04/24/2018 [facility] Lyme Disease Positive Negative [address] [place] [address] [phone] Lyme Western Blot 04/24/2018 [facility] Lyme Disease Negative Negative [address] [place] [address] [phone] Lyme Disease IgG Bands Present p66,p45,p41,p39 kDa Lyme Disease IgM Ab WB Negative Negative Lyme Disease IgM Bands Present No bands detecte <SEE NOTE> kDa 6 Lyme Disease Interpretation See Comment 7 Surgical 01/14/2012 [facility] Surgical 8 Pathology Pathology <SEE NOTE> [place] [facility] [phone] Basic 01/06/2012 [facility] Sodium 137 mmol/L 135- [address] [place] [address] [phone] Potassium 4.5 mmol/L 3.5-5.0 Chloride 105 mmol/L 101-111 Co2 (Carbon Dioxide) 28.0 mmol/L 22-32 Anion Gap 4.0 mmol/L 2-11 10 Glucose 86 mg/dL 70-100 BUN 11 mg/dL 6-24 Creatinine 1.5 mg/dL High 0.50-1.40 One Over Creatinine 0.66 BUN/Creatinine Ratio 7.3 Low 8-20 Calcium 9.3 mg/dL 8.1-9.9 eGFR Non- 47.4 > 60 eGFR 61.0 > 60 11 Type And Screen 01/06/2012 [facility] Patient Blood A POSITIVE (Pre-Adm) [address] [place] [address] [phone] Antibody Screen NEGATIVE Specimen Discard Date 01/20/12 12 Laboratory test 01/06/2012 [facility] PTT (Aptt) 28.9 SEC 25.1-38.[address] [place] [address] [phone] Protime 01/06/2012 [facility] Inr 0.89 0.88-1.[address] [place] [address] [phone] Protime 10.5 SEC 10.3-13.5 14 CBC Auto Diff 01/06/2012 [facility] White Blood 5.1 CUMM 4.8- 10.[address] [place] [address] [phone] Red Cell Count 4.05 CUMM Low 4.6-6.2 [...] High 0-0.6 Abs Basophils 0 0-0.2 1 Not diagnostic. Supplemental testing by immunoblot has been ordered by reflex. Test Performed by: [facility] [address] [place] [address] 2 Because ethnic data is not always [...] 5 Kidney failure <15 (or dialysis) 3 No bands detected 4 Specific serologic response to B. burgdorferi infection [...] >=30 days of symptoms. Test Performed by: [place] [address] 5 Not diagnostic. Supplemental testing by immunoblot has been ordered by reflex. Test Performed by: [place] [address] 6 No bands detected 7 Specific serologic response to B. burgdorferi infection [...] of symptoms. Test Performed by: [facility] [address] [place] [address] 8 --- RUN DATE: 02/14/12 [facility] NMI LIVE PAGE 1 RUN TIME: 1615 Specimen Inquiry RUN USER: INTERFACE -- Name: SILVESTRE CHAPMAN Acceren#: [id number] Status: [facility] Re01/14/12 Age/Sex: 61/M Unit#: [id number] Location: [facility] : 49 -- Specimen: [id number] SOUT Spec Date:01/14/12 Dr: Mark corado MD Spec Type: SURGICAL P Received:01/15/12 Copies to: SPECIMEN C3-C4 LAMINA SPINAL PROCESSES AND LIGAMENTS HISTORY PRE-OP DIAGNOSIS: Severe cord compression C3-C6 GROSS DESCRIPTION The specimen is received in formalin labelled Silvestre Chapman, C3-6 Lamina Spinal Process, and consists of four spinous processes connected by ligaments tissue measuring 7.0 cm. by up to 2.0 cm. by up to 2.0 cm. Microfabrication Engineer Manager section, one cassette after decal. DIAGNOSIS Cervical spine, C3-C4, lamina: A. Bone with reactive changes. B. Normocellular bone marrow for age (40%) with mixed trilineal hematopoiesis and focal interstitial small lymphoid aggregates. Signed Electronically by: SHILPI CARTAGENA 02/14/12 1615 -- -- DEPARTMENT OF PATHOLOGY, [address] [place] [address] [facility] Permit #[id number] Sekou Cote M.D. Director Shilpi Cartagena M.D. Body Engineer Dir marissa -- 9 SDS 01/09/12 10 Anion gap measurement may be of limited value in the presence of any alkalosis, especially in a combined acid base disorder. . 11 Because ethnic data is not always readily [...] 15-29 5 Kidney failure <15 (or dialysis) 12 PREADMISSION TESTING SAMPLES FOR BLOOD BANK WILL [...] WITHIN 3 DAYS OF THE SURGERY DATE. 13 Recommended INR for Patients on Oral Anticoagulants Prophylaxis 2.0 - 3.0 Treatment of thrombosis 2.0 - 3.0 Prevention of embolism 2.0 - 3.0 Prevention of embolism from prosthetic heart valves 2.5 - 3.5 14 DIAGNOSIS,TREATMENT,AND THERAPY MUST BE BASED ON THE INR VALUE ALONE. Procedures Date Code Description Status 02/05/2019 Inj/Aspir Major JT Or Bursa W/ US Completed 04/17/2018 Inject/Drain Joint/Bursa Major W/O US Completed 05/27/2017 33131 Moderate Sedation Services; Same Phys Intl 15 Mins; PT Completed >=5 Years 05/27/2017 17885 Colonoscopy Flexible Remove Tumor/Polyp/Lesion Snare Completed Technique 05/27/2017 53937718 Colonoscopy Completed 01/14/2012 09914 Laminectomy W/Expl &/Or Decomp Of Spinal Cord [...] Berta Friend, M25.551 Pain in right Of C.Rm.Susan MSara hip M16.11 Unilateral primary osteoarthritis, right hip Office Visit 08/18/2018 Stalin Bustos G62.9 Polyneuropathy, 8:15a Neurologic Miranda Diaz unspecified [facility] R20.2 Paresthesia of skin G95.89 Other specified diseases of spinal cord Office Visit 05/28/2018 [place] Diaz, M50.01 Cervical disc 11:15a Neurologic M.DHenny disorder w [facility] myelopathy, high cervical region M54.5 Low back pain G62.9 Polyneuropathy, unspecified R20.2 Paresthesia of skin Office Visit 04/24/2018 9:45a Orthopedic Services Berta Friend, M25.562 Pain in left Of C.Winsome Jean knee M25.462 Effusion, left knee M17.12 Unilateral primary osteoarthritis, left knee Office Visit 04/17/2018 3:15p Orthopedic Berta Friend, R60.0 Localized edema [facility] Marie Jean M25.562 Pain in left knee M25.462 Effusion, [...] - SHARONDA Andino at [facility]04/08/2019 10:30 am - Berta Friend M.D. at [facility]08/19/2019 8:30 am - Akash Diaz M.D. at [facility]03/29/2019 - Berta Friend M.D.M25.551 Pain in right hipFollow up:Follow up: 10- 14 days post opM16.11 Unilateral primary osteoarthritis, right hip
[2019-04-08] MEDS ORDERED: Famotidine IV* 10 MG/ML 2 ML (20 mg) ONE (13:54)
[2019-04-08] MEDS ORDERED: Gabapentin CAP(*) 300 MG ONE (13:54)
[2019-04-08] MEDS ORDERED: Buffered Lidocaine 1% SYRIN* 1 ML/SYRINGE INTRADERM ONE (13:54)
[2019-04-08] MEDS ORDERED: Clindamycin 900 MG IVPREMIX(* 900 MG/50 ML SDV IV ONE (13:54)
[2019-04-08] MEDS: Buffered Lidocaine 1% SYRIN* 1 ML/SYRINGE INTRADERM ONE ×2 (14:06→18:01)
[2019-04-08] MEDS ORDERED: fentaNYL* 50 MCG/ML 2 ML VIAL (100 MCG VIAL) ONE (14:34)
[2019-04-08] MEDS ORDERED: Midazolam* 1 MG/ML 5 ML VIAL (5 MG) ONE (14:35)
[2019-04-08] MEDS ORDERED: ROPIVACAINE 5 MG/ML 30 ML BTL (0.5%) ONE (15:36)
[2019-04-08] MEDS ORDERED: KETAMINE HCL* 50 MG/ML 10 ML VIAL ONE (16:29)
[2019-04-08] MEDS ORDERED: Propofol* 10 MG/ML 20 ML BTL ONE (16:34)
[2019-04-08] MEDS ORDERED: Ondansetron INJ* 2 MG/ML VIAL ONE (16:34)
[2019-04-08] MEDS ORDERED: Ketorolac INJ* 30 MG/ML 1 ML VIAL ONE (16:34)
[2019-04-08] MEDS ORDERED: HYDROmorphone INJ1* 1 MG/ML SYRINGE IV PRN (16:52)
[2019-04-08] MEDS ORDERED: DiMENhydriNATE IV* 50 MG/ML VIAL IV PUSH PRN (16:52)
[2019-04-08] MEDS ORDERED: HYDROcodone/ACETAMIN 5-325 MG* 1 TAB PO PRN (16:52)
[2019-04-08] MEDS ORDERED: Naloxone* 0.4 MG/ML 1 ML VIAL IV PRN (16:52)
[2019-04-08] MEDS ORDERED: Gabapentin CAP(*) 100 MG PO ONE (16:53)
[2019-04-08] MEDS ORDERED: HYDROmorphone INJ1* 1 MG/ML SYRINGE ONE (17:52)
[2019-04-08] MEDS ORDERED: Gabapentin CAP(*) 100 MG ONE (18:03)
[2019-04-08] MEDS ORDERED: diPHENhydraMINE IV* 50 MG/ML 1 ml VIAL (BENADRYL) IV PRN (18:21)
[2019-04-08] MEDS ORDERED: Ondansetron ODT TAB* 4 MG PO PRN (18:21)
[2019-04-08] MEDS ORDERED: traMADol TAB* 50 MG PO PRN (18:21)
[2019-04-08] MEDS ORDERED: Polyethylene Glycol 3350* 17 GM PACKET PO PRN (18:21)
[2019-04-08] MEDS ORDERED: Magnesium Hydroxide LIQ* 30 ML UDC PO PRN (18:21)
[2019-04-08] MEDS ORDERED: oxyCODONE/Acetamin 5/325 MG* TAB PO PRN ×2 (18:21)
[2019-04-08] MEDS ORDERED: Morphine 4 MG/ML VIAL (1 ml) 4 MG/ML VIAL IV PRN (18:21)
[2019-04-08] MEDS ORDERED: diPHENhydraMINE PO* 25 MG PO PRN (18:21)
[2019-04-08] MEDS ORDERED: Temazepam CAP* 15 MG PO PRN (18:21)
[2019-04-08] MEDS ORDERED: Ondansetron INJ* 2 MG/ML VIAL IV PRN (18:21)
[2019-04-08] MEDS ORDERED: Bisacodyl SUPP* 10 MG SUPP PR PRN (18:21)
[2019-04-08] MEDS ORDERED: Cetirizine* 10 MG TAB PO PRN (18:30)
[2019-04-08] MEDS ORDERED: Pseudoephedrine HCL ER TAB* 120 MG PO PRN (18:30)
--- NOTE | 2019-04-08 18:54 | OP ---
Operative Report - Blank - Operative Report Date of Operation: 04/08/19 Note: TRINI CHAPMAN 1950 Date Of Surgery: 04/08/19 Berta Friend MD Study Abroad Coordinator: Monalisa SOTO did help throughout the procedure with preparation of the hip, wound retraction, manipulation of the hip, and wound closure. Anesthesiologist: Monalisa Farley MD Anesthesia Type: Spinal Preoperative Diagnosis: Right severe degenerative osteoarthritis of the hip Postoperative Diagnosis: As above Procedure Performed: Right Total Hip Arthroplasty Complications: None Specimen: Femoral head and acetabular reamings sent to pathology. Hardware used: This is uncemented Cedrick total hip arthroplasty hardware for the femur a size 7 accolade II with 127 neck angle femoral component, for the acetabulum a size 58 F trident II tritanium cluster hole shell, a single 20 mm screw, for the insert a size 40 F trident x3 polyethylene insert, and for the femoral head a size 40 + 4 LFIT anatomic V40 femoral head. Brief history/Indication: TRINI CHAPMAN was known in clinic and had a history of severe right hip pain. He failed conservative treatment with anti- inflammatories, pain pills, intra-articular injections and physical therapy. He elected to undergo right total hip arthroplasty due to continued pain and decreased quality of life. Radiographs showed severe end stage osteoarthritis of the hip with bone on bone contact. Informed consent was obtained from the patient. He understood the risks of surgery included but were not limited to: bleeding, infection, damage to nearby structures, intraoperative fracture, nerve palsy, failure of the hardware, early loosening, stiffness or loss of motion, dislocation, leg length discrepancy, anesthesia complications, stroke, heart attack, blood clot and . He wished to proceed. Intra-Operative findings: Intraoperatively the patient was noted to have severe loss of cartilage of the acetabulum and femoral head. Description of the Procedure: TRINI CHAPMAN was identified in the preanesthesia unit. His right hip was marked as the correct operative side. Informed consent was signed and placed in the chart. The patient was taken to the operating room and placed under anesthesia without complication. A payne catheter was placed. The patient was placed on the peg board with all bony prominences well padded. The right lower extremity was prepped and draped in the usual sterile fashion. Preoperative time -out was made to correctly identify the patient, side and site. Appropriate intraoperative antibiotics were given within one hour of incision. A standard posterior incision was made and carried sharply down to the lateral fascia. A new 10 blade was used to make an incision in the fascia in line with the skin incision. A charnley retractor was placed. The piriformis and conjoined tendons were identified and elevated off the posterolateral femur using electrocautery. These were tagged with number 5 Ethibond. Next electrocautery was used to make a posterolateral capsular flap and this was tagged with number 5 Ethibonds. The hip was carefully dislocated. Lesser trochanter to the center of the femoral head was measured at 68 mm. The oscillating saw was used to make the femoral neck cut. The femoral head was carefully removed. The femur was retracted anteriorly and the acetabular retractors were placed. Long-handled knife was used to sharply remove any remaining labrum from the acetabular rim. The acetabulum was sequentially reamed up to a size 58. A bleeding subchondral bone bed was obtained. A trial liner was placed and had excellent fit and stability. A 58F trident II tritanium cup with one 20 mm screw was placed and had excellent stability with appropriate anteversion and abduction angle. A size 40F polyethylene liner was impacted into the acetabular shell. The liner was checked for stability and was stable. Next attention was turned to preparation of the femoral canal. A canal finder was used to enter the proximal femur. The femoral canal was sequentially broached up to a size 7 femoral broach trial. A trial neck and 40+ 4 trial femoral head was chosen. Lesser trochanter to center of the femoral head measurement was satisfactory. The hip was reduced and taken through a range of motion. The hip was stable in all positions with good soft tissue tension and appropriate leg lengths. The hip was dislocated and all trials were removed. The final implant chosen was a accolade II size 7 with 127 neck angle. This stem was impacted into the femoral canal without difficulty. The stem was stable with appropriate anteversion. The femoral head chosen was a 40 + 4 metal head. The head was impacted onto the femoral neck without difficulty. The final lesser trochanter to center of the femoral head measurement was satisfactory. The hip was reduced and taken through a range of motion. The hip was stable in all positions with good soft tissue tension and appropriate leg lengths. The hip was copiously irrigated with sterile saline. The previously tagged capsule and tendons were repaired to the posterolateral femur through two trochanteric drill holes. The lateral fascia layer was closed using number 1 vicryls. The rest of the incision was closed in a layered fashion using 0 and 2-0 vicryls. The skin was closed using 3-0 monocryl suture and Dermabond. Sterile adaptic, 4x4s and paper tape was used to cover the incision. The patients anesthesia was reversed without difficulty. He was taken to the PACU in stable condition. Intended weight-bearing will be as tolerated with posterior hip precautions.
[2019-04-08] MEDS ORDERED: Acetaminophen TAB* 325 MG ONE (19:19)
[2019-04-08] MEDS: Acetaminophen TAB* 325 MG PO SCH (19:21)
[2019-04-08] MEDS: Lactated Ringers 1000 ML Bag* 1,000 ML IV SCH (20:04)
[2019-04-08] MEDS ORDERED: Gabapentin CAP(*) 300 MG PO SCH (21:00)
[2019-04-08] MEDS: Magnesium Hydroxide LIQ* 30 ML UDC PO SCH (21:55)
[2019-04-08] MEDS: Docusate CAP* 100 MG PO SCH (21:55)
[2019-04-08] MEDS: Clindamycin 600 MG IVPREMIX(* 600 MG/50 ML SDV IV SCH (21:57)
[2019-04-08] MEDS: Apixaban* 2.5 MG TAB PO SCH (23:27)
[2019-04-09] MEDS: Acetaminophen TAB* 325 MG PO SCH ×2 (02:10→12:21)
[2019-04-09] MEDS ORDERED: Levothyroxine TAB* 75 MCG TAB PO SCH (06:00)
[2019-04-09] MEDS: Clindamycin 600 MG IVPREMIX(* 600 MG/50 ML SDV IV SCH ×2 (06:09→14:48)
[2019-04-09] MEDS: Lactated Ringers 1000 ML Bag* 1,000 ML IV SCH (06:15)
[2019-04-09 07:03] LABS: Hematocrit 33 % (42-52); Hemoglobin 11.8 g/dL (14.0-18.0); Mean Platelet Volume 9.3 fL (7.4-10.4); Platelet Count 135 10^3/uL (150-450)
[2019-04-09 07:24] LABS: BUN/Creatinine Ratio 12.2 (8-20); EGFR African American 101.2 (>60); EGFR Non-African American 83.7 (>60); Potassium 3.8 mmol/L (3.5-5.0)
[2019-04-09] MEDS: Cyclobenzaprine TAB* 10 MG PO PRN ×2 (08:07→14:49)
[2019-04-09] MEDS: oxyCODONE TAB* 5 MG TAB PO PRN ×2 (08:08→12:22)
[2019-04-09] MEDS: Magnesium Hydroxide LIQ* 30 ML UDC PO SCH (08:21)
[2019-04-09] MEDS: Apixaban* 2.5 MG TAB PO SCH (08:21)
[2019-04-09] MEDS: Docusate CAP* 100 MG PO SCH (08:34)
--- NOTE | 2019-04-09 11:36 | DS ---
Orthopedic Discharge Summary - Discharge Summary Date of Admission:04/08/19 Date of Discharge: 04/09/19 Date of Surgery: 04/08/19 Attending Orthopedic Provider: Dr. Friend Pre-operative Diagnosis: Degenerative arthritis right hip Operative Procedure: Right total hip arthroplasty Disposition of Patient: home Condition of Patient: stable History: TRINI CHAPMAN is a 68 year old M with years of increasingly severe right hip pain. Patient has failed conservative management and has elected to undergo a right total hip replacement Hospital Course: TRINI was admitted to [facility] on 04/08/19. Patient underwent a right total hip arthroplasty without complication followed by a brief recovery in PACU and transfer to the Short Stay Surgical Unit in stable condition. Our hospitalist service, physical therapy and occupational therapy also participated in this patients care. Post-op day 1: patient was alert and in no acute distress. Dressing was clean, dry and intact. Operative extremity dorsiflexion and plantarflexion intact, sensation intact to light touch distally, DP2+, dressing was changed, incision was clean, dry and intact. Patient was deemed to be medically and orthopedically stable for discharge. Physical therapy goals were met. Home Medications Medication Instructions Recorded Confirmed Type Atorvastatin* [Lipitor 20 MG*] 10 mg PO 1400 05/21/17 03/29/19 History Ranitidine TAB (NF) [Zantac TAB 300 mg PO 1400 05/21/17 03/29/19 History (NF)] Cholecalciferol (Vitamin D3) 1,000 unit PO 1400 05/27/17 03/29/19 History [Vitamin D3] Gluc Harris/Chondro Harris A/Vit C/Mn 1 - 2 tab PO 1400 05/27/17 03/29/19 History [Glucosamine Chondroitin Tab] Loratadine [Claritin 10 MG CAP] 10 mg PO DAILY PRN 05/27/17 03/29/19 History Vit C/E/Zn/Coppr/Lutein/Zeaxan 1 tab PO QPM #0 05/27/17 03/29/19 History [Preservision Areds 2 Softgel] Acetaminophen [Acetaminophen Extra 500 mg PO BEDTIME 03/29/19 03/29/19 History Strength] Gabapentin CAP(*) [Neurontin 100 300 mg PO BEDTIME 03/29/19 03/29/19 History mg CAP(*)] Levothyroxine TAB* [Synthroid 75 75 mcg PO 1400 03/29/19 03/29/19 History MCG TAB*] Fish [place]-3S/Dha/Epa/Fish Oil [Fish 300 mg PO 1400 03/29/19 03/29/19 History Oil Fish Haven-3 Softgel] Pseudoephedrine HCL ER TAB* 120 mg PO ONCE PRN 03/29/19 03/29/19 History [Sudafed 12 Hour*] Psyllium Husk [Fiber] 6 cap PO TID 03/29/19 03/29/19 History Vitamin B Complex Vit C No.3 [B 1 cap PO 1400 03/29/19 03/29/19 History Complex with Vitamin C] Apixaban* [Eliquis*] 2.5 mg PO BID #60 tab 04/09/19 Rx Docusate CAP* [Colace Cap*] 100 mg PO BID cap 04/09/19 Rx oxyCODONE/Acetamin 5/325 MG* 1 - 2 tab PO Q4H PRN #56 tab MDD 8 04/09/19 Rx [Percocet 5/325 TAB*] DISCHARGE INSTRUCTIONS: Weight Bearing as tolerated Wound Care: OK to shower on post-op day 3, no bathing/ swimming/ submerging wound. Use gentle soap, pat dry. Cover with gauze, ROSALIE wrap or tape. Call Orthopedic office for increased drainage, redness, increased pain, or fever. Go to ER with shortness of breath or chest pain. Diet: Regular diet, increase fluids and fiber to prevent constipation. Continue to use stool softeners, call office if no bowel motion within 48 hours. Hip replacements: Continue Hip Precautions- do not cross legs or bend greater than 90 degrees/ squat - Continue physical therapy and occupational therapy exercises as shown. DVT Prophylaxis: - Eliquis- 2.5mg twice daily x 1 month - Pain control with: Percocet 5/325 mg 1-2 tabs by mouth every 4-6 hours as needed for pain. Maximum of 10 tabs per day Please note that percocet contains tylenol (acetaminophen). Maximum daily dose of tylenol is 4000 mg from all sources. Meds sent to [facility] pharmacy - Antibiotics required prior to any dental work. FOLLOW UP: Follow up with Dr. Friend Within 10-14 days, call for appointment Please call our office with any questions or concerns ([phone])
[2019-04-09] MEDS ORDERED: Famotidine TAB* 20 MG PO SCH (14:00)
[2019-04-09] MEDS ORDERED: Cholecalciferol TAB* 1000 UNITS PO SCH (14:00)
[2019-04-09] MEDS ORDERED: Atorvastatin* 10 MG TAB PO SCH (14:00)
[2019-04-09 15:11] VITALS: BP 111/58
== END 2019-04-09 16:10 | disposition home or self-care (01) | DRG 470 ==
LOC: AA 04-08 13:26 → SSU 04-08 19:41
PROVIDERS: ADMIT Orthopaedic Surgery Adult Reconstructive Orthopaedic Surgery; ATTEND Orthopaedic Surgery Adult Reconstructive Orthopaedic Surgery
PROC: 0SR902A Replacement of Right Hip Joint with Metal on Polyethylene Synthetic Substitute, Uncemented, Open Approach (ICD-10-PCS; principal; 2019-04-08 16:15)
DX: M16.11 Unilateral primary osteoarthritis, right hip (principal); M50.30 Other cervical disc degeneration, unspecified cervical region; M47.892 Other spondylosis, cervical region; G90.09 Other idiopathic peripheral autonomic neuropathy; M48.00 Spinal stenosis, site unspecified; E03.9 Hypothyroidism, unspecified; K21.9 Gastro-esophageal reflux disease without esophagitis; Z79.1 Long term (current) use of non-steroidal anti-inflammatories (NSAID); Z79.899 Other long term (current) drug therapy; Z88.0 Allergy status to penicillin; Z80.42 Family history of malignant neoplasm of prostate; Z80.0 Family history of malignant neoplasm of digestive organs
CPT/HCPCS: 36415; 80048; 85014; 85018; 85049; 88304; 88311; A9270-GY; C1713; C1776; G8978-GP-CJ; G8979-GP-CI; G8987-GO-CI; G8988-GO-CI; G8989-GO-CI; J1170; J1885; J2250; J2405; J2704; J2795; J3010

== ENCOUNTER 2021-05-18 06:29 | Inpatient (IN) ==
[~2021-05-18 06:29] MED LIST: Buffered Lidocaine 1% SYRIN 1 ml INTRADERM ONE; Famotidine IV 10 MG/ML 2 ml VIAL (20 mg) IV ONE; Lactated Ringers 1000 ml BAG 1,000 ML IV SCH
[2021-05-18] MEDS ORDERED: Famotidine IV 10 MG/ML 2 ml VIAL (20 mg) ONE (06:59)
[2021-05-18] MEDS ORDERED: ROPIVACAINE 5 MG/ML 30 ML BTL (0.5%) ONE (08:01)
[2021-05-18] MEDS ORDERED: fentaNYL 100 mcg/2 ml 50 MCG/ML VIAL ONE (08:12)
[2021-05-18] MEDS ORDERED: Midazolam 2 mg/2 ml VIAL 1 mg/ml 2 ml VIAL (2 mg) ONE (08:12)
[2021-05-18] MEDS ORDERED: Dexmedetomidine 200 mcg/2 ml 2 ml VIAL (200 mcg) ONE ×3 (08:14→08:39)
[2021-05-18] MEDS ORDERED: Propofol 10 mg/ml 100 ML BTL 100 ML ONE (08:14)
[2021-05-18] MEDS ORDERED: Bupivacaine 0.5% 50 ML MDV VIAL ONE (08:14)
[2021-05-18] MEDS ORDERED: Bupivacaine 0.5% SDV PF 30ML VIAL ONE (08:17)
[2021-05-18] MEDS ORDERED: Ropivacaine 5 MG/ML 20 ML VIAL 0.5% (100 MG) ONE (08:20)
[2021-05-18 08:38] LABS: Calcium 9.4 mg/dL (8.6-10.3); EGFR African American 85.2 (>60); EGFR Non-African American 70.4 (>60); Potassium 4.3 mmol/L (3.5-5.0)
[2021-05-18] MEDS ORDERED: Bupivacaine-MPF SPINAL 7.5 MG/ML - 2ML AMP ONE (08:49)
[2021-05-18] MEDS ORDERED: Rocuronium 50 mg VIAL 10 mg/ml 5 ml VIAL (50 mg) ONE (09:43)
[2021-05-18] MEDS ORDERED: Lidocaine 2% PF 5 ML VIAL ONE (09:45)
[2021-05-18] MEDS ORDERED: EPHEDrine (Pressors) 50 MG/ML VIAL ONE (10:06)
[2021-05-18] MEDS ORDERED: Ondansetron 4 mg VIAL 2 MG/ML 2 ml VIAL ONE (12:48)
[2021-05-18] MEDS ORDERED: Dexamethasone IV 4 MG/ML VIAL 1 ml VIAL ONE (12:48)
[2021-05-18] MEDS ORDERED: Glycopyrrolate IV 0.2 MG/ML 1 ML VIAL ONE (12:56)
[2021-05-18] MEDS ORDERED: Acetaminophen IV 1 GM/100ML 100 ML IV ONE ×2 (13:42→13:49)
[2021-05-18] MEDS ORDERED: Naloxone 0.4 mg VIAL 0.4 mg/ml 1 ml VIAL IV PRN (13:42)
[2021-05-18] MEDS ORDERED: Ondansetron 4 mg VIAL 2 MG/ML 2 ml VIAL IV PRN ×2 (13:42→14:16)
[2021-05-18] MEDS ORDERED: HYDROmorphone 1 MG/1 ML SYRINGE ONE (13:49)
[2021-05-18] MEDS: HYDROmorphone 1 MG/1 ML SYRINGE IV PRN ×4 (13:59→15:25)
[2021-05-18] MEDS ORDERED: Magnesium Hydroxide LIQ 30 ML UDC PO PRN ×2 (14:14→14:16)
[2021-05-18] MEDS ORDERED: Morphine 2 MG/ML SYRINGE IV PRN (14:16)
[2021-05-18] MEDS ORDERED: diPHENhydraMINE 25 mg TAB PO PRN (14:16)
[2021-05-18] MEDS ORDERED: Ondansetron ODT 4 mg TAB 4 MG TAB PO PRN (14:16)
[2021-05-18] MEDS ORDERED: diPHENhydraMINE IV 50 MG/ML 1 ml VIAL (BENADRYL) IV PRN (14:16)
[2021-05-18] MEDS ORDERED: Lactulose 30 ml UDC PO PRN (14:16)
[2021-05-18] MEDS: Lactated Ringers 1000 ml BAG 1,000 ML IV SCH (16:08)
[2021-05-18] MEDS ORDERED: HYDROCORTISONE 1% TOPICAL PRN (16:48)
[2021-05-18] MEDS: Clindamycin 600 MG/D5W BAG 600 MG/50 ML BAG IV SCH (18:12)
[2021-05-18] MEDS: Magnesium Hydroxide LIQ 30 ML UDC PO SCH (20:40)
[2021-05-19] MEDS: Clindamycin 600 MG/D5W BAG 600 MG/50 ML BAG IV SCH ×2 (02:51→10:26)
[2021-05-19] MEDS: Lactated Ringers 1000 ml BAG 1,000 ML IV SCH (02:52)
[2021-05-19 05:34] LABS: Hematocrit 25 % (42-52); Hemoglobin 8.1 g/dL (14.0-18.0); Mean Platelet Volume 8.3 fL (7.4-10.4); Platelet Count 196 10^3/uL (150-450)
[2021-05-19 05:42] LABS: Calcium 7.7 mg/dL (8.6-10.3); EGFR African American 110.5 (>60); EGFR Non-African American 91.3 (>60); Potassium 3.9 mmol/L (3.5-5.0)
[2021-05-19] MEDS: Cholecalciferol (VIT D3) 1,000 unit TAB PO SCH (08:21)
[2021-05-19] MEDS: Polyethylene Glycol 3350 17 GM PACKET PO SCH (08:21)
[2021-05-19] MEDS: Magnesium Hydroxide LIQ 30 ML UDC PO SCH ×2 (08:21→22:51)
[2021-05-19] MEDS: Vitamin THERAPEUTIC TAB PO SCH (08:22)
[2021-05-19] MEDS ORDERED: Flu vaccine *QUAD* 2021-22* 0.5 ML SYRINGE IM ONE (09:00)
[2021-05-19] MEDS: oxyCODONE/Acetamin 5/325 mg TAB PO PRN (11:53)
[2021-05-19] MEDS ORDERED: Iodixanol (CONTRAST) 320 MG/ML 100 ML SDV IV ONE (19:09)
[2021-05-19] MEDS ORDERED: NS 0.9% 1000 ml BAG 1,000 ML IV SCH (19:30)
[2021-05-19 19:31] LABS: ABS Lymphocytes 0.9 10^3/ul (1.0-4.8); ABS Monocytes 0.8 10^3/ul (0-0.8); ABS Neutrophils 3.6 10^3/ul (1.5-7.7); Eosinophil % 0.3 %; Hematocrit 23 % (42-52); Hemoglobin 7.8 g/dL (14.0-18.0); Lymphocyte % 16.3 %; Mean Corpuscular HGB Conc 33 g/dL (31-36); Mean Corpuscular Hemoglobin 26 pg (27-31); Mean Corpuscular Volume 77 fL (80-94); Mean Platelet Volume 8.3 fL (7.4-10.4); Platelet Count 194 10^3/uL (150-450); Red Blood Count 3.05 10^6 /uL (4.18-5.48); Red Cell Distribution Width 21 % (10-15); White Blood Count 5.4 10^3/uL (3.5-10.8)
[2021-05-19 19:38] LABS: Albumin 3.3 g/dL (3.2-5.2); Albumin/Globulin Ratio 1.4 (1-3); Calcium 7.5 mg/dL (8.6-10.3); EGFR African American 104.7 (>60); EGFR Non-African American 86.5 (>60); Globulin 2.3 g/dL (2-4); Potassium 3.9 mmol/L (3.5-5.0); Total Bilirubin 0.8 mg/dL (0.2-1.0); Total Protein 5.6 g/dL (6.4-8.9)
[2021-05-19 19:39] LABS: INR 1.15 (0.86-1.15)
[2021-05-19 22:43] LABS: TSH Ultra Thyroid Stim Horm 3.47 mcIU/mL (0.34-5.60)
[2021-05-20 01:58] LABS: Calcium 7.5 mg/dL (8.6-10.3); EGFR African American 100.7 (>60); EGFR Non-African American 83.2 (>60); Potassium 3.9 mmol/L (3.5-5.0)
[2021-05-20 06:30] LABS: Hematocrit 25 % (42-52); Hemoglobin 8.4 g/dL (14.0-18.0); Mean Platelet Volume 8.3 fL (7.4-10.4); Platelet Count 166 10^3/uL (150-450)
[2021-05-20 06:51] LABS: Calcium 7.5 mg/dL (8.6-10.3); EGFR African American 103.3 (>60); EGFR Non-African American 85.4 (>60); Potassium 3.8 mmol/L (3.5-5.0)
[2021-05-20] MEDS: Vitamin THERAPEUTIC TAB PO SCH (07:48)
[2021-05-20] MEDS: Magnesium Hydroxide LIQ 30 ML UDC PO SCH ×2 (07:48→21:04)
[2021-05-20] MEDS: Cholecalciferol (VIT D3) 1,000 unit TAB PO SCH (07:50)
[2021-05-20] MEDS: Polyethylene Glycol 3350 17 GM PACKET PO SCH (07:50)
[2021-05-20 10:33] LABS: Calcium 7.4 mg/dL (8.6-10.3); EGFR African American 115.3 (>60); EGFR Non-African American 95.3 (>60); Potassium 3.8 mmol/L (3.5-5.0)
[2021-05-20 14:08] LABS: Calcium 7.7 mg/dL (8.6-10.3); EGFR African American 106.1 (>60); EGFR Non-African American 87.7 (>60); Potassium 3.9 mmol/L (3.5-5.0)
[2021-05-20] MEDS: oxyCODONE/Acetamin 5/325 mg TAB PO PRN (22:57)
[2021-05-21] MEDS: oxyCODONE/Acetamin 5/325 mg TAB PO PRN (05:55)
[2021-05-21] MEDS: Vitamin THERAPEUTIC TAB PO SCH (09:16)
[2021-05-21] MEDS: Polyethylene Glycol 3350 17 GM PACKET PO SCH (09:16)
[2021-05-21] MEDS: Magnesium Hydroxide LIQ 30 ML UDC PO SCH ×2 (09:16→22:11)
[2021-05-21] MEDS: Cholecalciferol (VIT D3) 1,000 unit TAB PO SCH (09:17)
[2021-05-21 10:35] LABS: ABS Eosinophils 0.1 10^3/ul (0-0.6); ABS Lymphocytes 0.8 10^3/ul (1.0-4.8); ABS Monocytes 0.8 10^3/ul (0-0.8); ABS Neutrophils 4.6 10^3/ul (1.5-7.7); Eosinophil % 1.7 %; Hematocrit 27 % (42-52); Hemoglobin 8.7 g/dL (14.0-18.0); Lymphocyte % 12.3 %; Mean Corpuscular HGB Conc 32 g/dL (31-36); Mean Corpuscular Hemoglobin 26 pg (27-31); Mean Corpuscular Volume 80 fL (80-94); Mean Platelet Volume 8.6 fL (7.4-10.4); Platelet Count 184 10^3/uL (150-450); Red Blood Count 3.38 10^6 /uL (4.18-5.48); Red Cell Distribution Width 21 % (10-15); White Blood Count 6.3 10^3/uL (3.5-10.8)
[2021-05-21 10:36] LABS: Calcium 8.1 mg/dL (8.6-10.3); EGFR African American 106.1 (>60); EGFR Non-African American 87.7 (>60); Potassium 4.1 mmol/L (3.5-5.0)
[2021-05-22] MEDS ORDERED: Benzocaine/Menthol LOZ MT PRN (03:46)
[2021-05-22 05:22] LABS: ABS Eosinophils 0.2 10^3/ul (0-0.6); ABS Lymphocytes 0.9 10^3/ul (1.0-4.8); ABS Monocytes 0.6 10^3/ul (0-0.8); ABS Neutrophils 3.4 10^3/ul (1.5-7.7); Eosinophil % 4.6 %; Hematocrit 25 % (42-52); Hemoglobin 8.4 g/dL (14.0-18.0); Lymphocyte % 16.9 %; Mean Corpuscular HGB Conc 33 g/dL (31-36); Mean Corpuscular Hemoglobin 26 pg (27-31); Mean Corpuscular Volume 79 fL (80-94); Mean Platelet Volume 8.1 fL (7.4-10.4); Platelet Count 190 10^3/uL (150-450); Red Blood Count 3.23 10^6 /uL (4.18-5.48); Red Cell Distribution Width 21 % (10-15); White Blood Count 5.1 10^3/uL (3.5-10.8)
[2021-05-22 05:40] LABS: Calcium 8.3 mg/dL (8.6-10.3); EGFR African American 110.5 (>60); EGFR Non-African American 91.3 (>60); Potassium 4.2 mmol/L (3.5-5.0)
[2021-05-22] MEDS: Vitamin THERAPEUTIC TAB PO SCH (09:35)
[2021-05-22] MEDS: Magnesium Hydroxide LIQ 30 ML UDC PO SCH ×2 (09:35→22:22)
[2021-05-22] MEDS: Cholecalciferol (VIT D3) 1,000 unit TAB PO SCH (09:37)
[2021-05-22] MEDS: Polyethylene Glycol 3350 17 GM PACKET PO SCH (09:37)
[2021-05-22] MEDS: Scopolamine PATCH Remove NOTE PATCH OFF SCH (09:41)
[2021-05-22 23:23] LABS: Calcium 8.4 mg/dL (8.6-10.3); EGFR African American 87.1 (>60); Potassium 4.2 mmol/L (3.5-5.0)
[2021-05-23 06:05] LABS: Hematocrit 25 % (42-52); Hemoglobin 8.3 g/dL (14.0-18.0); Mean Platelet Volume 7.4 fL (7.4-10.4); Platelet Count 240 10^3/uL (150-450)
[2021-05-23 06:30] LABS: Calcium 8.4 mg/dL (8.6-10.3); EGFR African American 96.9 (>60); EGFR Non-African American 80.1 (>60); Potassium 4.3 mmol/L (3.5-5.0)
[2021-05-23] MEDS: Cholecalciferol (VIT D3) 1,000 unit TAB PO SCH (07:57)
[2021-05-23] MEDS: Vitamin THERAPEUTIC TAB PO SCH (07:58)
[2021-05-23] MEDS: Polyethylene Glycol 3350 17 GM PACKET PO SCH (08:03)
[2021-05-23] MEDS: Magnesium Hydroxide LIQ 30 ML UDC PO SCH ×2 (08:03→21:54)
[2021-05-24 06:15] LABS: Calcium 8.5 mg/dL (8.6-10.3); EGFR African American 107.5 (>60); EGFR Non-African American 88.9 (>60); Potassium 3.9 mmol/L (3.5-5.0)
[2021-05-24] MEDS: Vitamin THERAPEUTIC TAB PO SCH (08:37)
[2021-05-24] MEDS: Cholecalciferol (VIT D3) 1,000 unit TAB PO SCH (08:38)
[2021-05-24] MEDS: Magnesium Hydroxide LIQ 30 ML UDC PO SCH ×2 (08:41→22:26)
[2021-05-24] MEDS: Polyethylene Glycol 3350 17 GM PACKET PO SCH (08:41)
[2021-05-24 08:48] LABS: Albumin 3.4 g/dL (3.2-5.2); Albumin/Globulin Ratio 1.3 (1-3); Direct Bilirubin 0.2 mg/dL (0.03-0.18); Globulin 2.6 g/dL (2-4); Total Bilirubin 1.2 mg/dL (0.2-1.0)
[2021-05-25 07:03] LABS: Calcium 8.5 mg/dL (8.6-10.3); EGFR African American 106.1 (>60); EGFR Non-African American 87.7 (>60); Potassium 4.9 mmol/L (3.5-5.0)
[2021-05-25] MEDS: Vitamin THERAPEUTIC TAB PO SCH (08:53)
[2021-05-25] MEDS: Cholecalciferol (VIT D3) 1,000 unit TAB PO SCH (08:54)
[2021-05-25] MEDS: Magnesium Hydroxide LIQ 30 ML UDC PO SCH ×2 (08:55→20:08)
[2021-05-25] MEDS: Polyethylene Glycol 3350 17 GM PACKET PO SCH (08:55)
[2021-05-25] MEDS: Scopolamine PATCH Remove NOTE PATCH OFF SCH ×2 (08:56→10:32)
[2021-05-26 06:15] LABS: Calcium 8.8 mg/dL (8.6-10.3); EGFR African American 103.3 (>60); EGFR Non-African American 85.4 (>60); Potassium 4.2 mmol/L (3.5-5.0)
[2021-05-26] MEDS: Cholecalciferol (VIT D3) 1,000 unit TAB PO SCH (07:49)
[2021-05-26] MEDS: Vitamin THERAPEUTIC TAB PO SCH (07:49)
[2021-05-26] MEDS: Magnesium Hydroxide LIQ 30 ML UDC PO SCH (10:05)
[2021-05-26] MEDS: Polyethylene Glycol 3350 17 GM PACKET PO SCH (10:05)
[2021-05-26 11:45] VITALS: BP 147/76
== END 2021-05-26 14:00 | DRG 462 ==
LOC: OR 06:29 → SSU 15:59 → ICU 05-19 22:34 → SSU 05-20 17:39
PROVIDERS: ADMIT Orthopaedic Surgery Adult Reconstructive Orthopaedic Surgery; ATTEND Orthopaedic Surgery Adult Reconstructive Orthopaedic Surgery

== ENCOUNTER 2023-01-06 06:50 | Observation (INO) ==
[2023-01-06 07:51] LABS: ABS Eosinophils 0.2 10^3/uL (0.0-0.5); ABS Lymphocytes 1.1 10^3/uL (1.0-4.8); ABS Monocytes 0.5 10^3/uL (0.0-1.1); ABS Neutrophils 3.8 10^3/uL (1.5-7.6); Eosinophil % 3.4 %; Hematocrit 34.7 % (38-53); Hemoglobin 11.6 g/dL (13.2-16.3); Mean Corpuscular Hemoglobin 28.4 pg (27-33); Mean Corpuscular Hgb Conc 33.3 g/dL (31-36); Mean Corpuscular Volume 85.3 fL (80-97); Mean Platelet Volume 8.2 fL (7.5-11.2); Nucleated Red Blood Cells % 0.1 /100 WBC (0.0-0.4); Platelet Count 221 10^3/uL (150-450); Red Blood Count 4.07 10^6/uL (4.06-5.63); Red Cell Distribution Width 17.7 % (12-17); White Blood Count 5.7 10^3/uL (3.6-10.2)
[2023-01-06 08:00] LABS: Activated Partial Thrombo Time 30.7 seconds (26.0-38.0); INR 1.07 (0.88-1.18)
[2023-01-06 08:40] LABS: Albumin 3.9 g/dL (3.2-5.2); Albumin/Globulin Ratio 1.8 (1-3); Calcium 9.2 mg/dL (8.6-10.3); Creatinine, Serum 1.13 mg/dL (0.67-1.17); Globulin 2.2 g/dL (2-4); Potassium 4.3 mmol/L (3.5-5.0); Total Bilirubin 0.9 mg/dL (0.2-1.0); Total Protein 6.1 g/dL (6.4-8.9); eGFR CKD-EPI 68.6 (>60)
[2023-01-06 12:20] LABS: Hemoglobin 10.2 g/dL (13.2-16.3)
[2023-01-06 18:03] LABS: ABS Eosinophils 0.1 10^3/uL (0.0-0.5); ABS Lymphocytes 1.7 10^3/uL (1.0-4.8); ABS Monocytes 0.5 10^3/uL (0.0-1.1); ABS Neutrophils 3.2 10^3/uL (1.5-7.6); ABS Nucleated RBC 0.01 10^3/ul; Eosinophil % 2.5 %; Hematocrit 32.2 % (38-53); Hemoglobin 10.9 g/dL (13.2-16.3); Lymphocyte % 30.8 %; Mean Corpuscular Hemoglobin 28.2 pg (27-33); Mean Corpuscular Hgb Conc 33.8 g/dL (31-36); Mean Corpuscular Volume 83.5 fL (80-97); Nucleated Red Blood Cells % 0.2 /100 WBC (0.0-0.4); Platelet Count 215 10^3/uL (150-450); Red Blood Count 3.85 10^6/uL (4.06-5.63); Red Cell Distribution Width 17.7 % (12-17); White Blood Count 5.6 10^3/uL (3.6-10.2)
[2023-01-06] MEDS: Lactated Ringers 1000 ml BAG 1,000 ML IV SCH (19:10)
[2023-01-07] MEDS: Lactated Ringers 1000 ml BAG 1,000 ML IV SCH ×2 (02:01→08:46)
[2023-01-07 06:59] LABS: ABS Eosinophils 0.2 10^3/uL (0.0-0.5); ABS Lymphocytes 1.4 10^3/uL (1.0-4.8); ABS Monocytes 0.4 10^3/uL (0.0-1.1); Eosinophil % 5.7 %; Hematocrit 27.7 % (38-53); Hemoglobin 9.4 g/dL (13.2-16.3); Lymphocyte % 34.1 %; Mean Corpuscular Hgb Conc 33.9 g/dL (31-36); Mean Corpuscular Volume 85.4 fL (80-97); Mean Platelet Volume 8.9 fL (7.5-11.2); Nucleated Red Blood Cells % 0.1 /100 WBC (0.0-0.4); Platelet Count 181 10^3/uL (150-450); Red Blood Count 3.25 10^6/uL (4.06-5.63); Red Cell Distribution Width 17.5 % (12-17)
[2023-01-07 07:14] LABS: Calcium 8.6 mg/dL (8.6-10.3); Creatinine, Serum 1.04 mg/dL (0.67-1.17); Magnesium 2.1 mg/dL (1.9-2.7); Potassium 4.3 mmol/L (3.5-5.0); eGFR CKD-EPI 75.8 (>60)
[2023-01-07 13:31] VITALS: BP 170/87
== END 2023-01-07 16:30 | disposition left against medical advice (07) ==
LOC: EDHOLD 06:50 → ED 06:50 → SUATTDRO 13:51 → EDHOLD 17:20 → MED 17:39
PROVIDERS: ADMIT Internal Medicine; ATTEND Internal Medicine